=== PATIENT | male | born 1950 | race Caucasian/White ===

== ENCOUNTER 2023-08-03 18:27 | Emergency (ER) | payer OTHER, SELFPAY ==
--- NOTE | ~2023-08-03 | XR_ITS ---
XR shoulder LT min 2V DATE: 08/03/2023 19:08 INDICATION: Fall. Proximal shoulder pain. TECHNIQUE: 3 views COMPARISON: None FINDINGS: There is a nondisplaced vertical fracture through the greater tuberosity of the left humeru s. In addition, there is a very subtle nondisplaced transverse surgical neck fracture. Normal alignment at the acromioclavicular and glenohumeral joints. Diffuse osteopenia. 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 IMPRESSION: Nondisplaced transverse surgical neck and longitudinal greater tuberosity fractures of pr oximal humerus Reviewed, dictated and finalized at location A. FING DIRECTOR IMPRESSION: Nondisplaced transverse surgical neck and longitudinal greater tube rosity fractures of proximal humerus
[2023-08-03 18:29] VITALS: PULSE 68; RESP 20; TEMP 36.1; O2SAT 99
--- NOTE | 2023-08-03 18:43 | PC.NURSE ---
Pt and daughter both state his blood pressure is always elevated when in pain. Pt daughter stated they didnt want to bring him to hospital because he might get admitted for his bp. Both pt and daughter insist that his blood pressure is normally high. Pt states he missed his coreg dose at 5pm. Pt [id number]
--- NOTE | 2023-08-03 19:45 | ED.UPPEXIN ---
HPI - Extremity Injury (Upper) General Chief Complaint: Extremity Injury, Upper Stated Complaint: left shoulder Time Seen by Provider: 08/03/23 18:37 History of Present Illness HPI narrative: Patient is a 72-year-old male presenting with left shoulder pain. Patient was playing virtual reality games with his grand children when he lost his balance and fell directly on his left shoulder. Immediately had severe pain and difficulty lifting it. No numbness or weakness. Did not strike his head or lose consciousness. No further complaints. Related Data Allergies Allergy/AdvReac Type Severity Reaction Status Date / Time No Known Allergies Allergy Verified 08/03/23 18:37 Review of Systems Review of Systems: All systems reviewed & are unremarkable except as noted in HPI and below Exam Narrative: GENERAL: Well-appearing, No acute distress, pleasant and cooperative HEAD: Normocephalic, atraumatic. EYES: PERRLA and EOMI. ENT: grossly unremarkable NECK: Supple. CHEST: No respiratory distress. HEART: Regular rate and rhythm. Normal peripheral pulses. EXTREMITIES: holding left arm in adducted position, unable to abduct, pain is worsened with any movement, tender especially anteriorly, distal pulses 2+, no sensory deficits SKIN: Warm, dry, no rash. NEURO: Alert and oriented x3 PSYCH: Normal mood and affect. Course Vital Signs Vital signs: Vital Signs Temperature 97 F L 08/03/23 18:29 Pulse Rate 68 08/03/23 18:29 Respiratory Rate 20 08/03/23 18:29 Pulse Oximetry 99 08/03/23 18:29 Oxygen Delivery Room Air 08/03/23 18:29 Temperature 97 F L 08/03/23 18:29 Pulse Rate 84 08/03/23 20:11 Respiratory Rate 19 08/03/23 20:11 Blood Pressure 214/88 H 08/03/23 20:11 Pulse Oximetry 100 08/03/23 20:11 Oxygen Delivery Room Air 08/03/23 18:29 MDM - Extremity Injury (Upper) MDM Narrative Medical decision making narrative: 72-year-old male presenting with left shoulder pain after a fall. Vitals are stable. Exam remarkable for the above. Neurovascularly intact. X-ray of the left shoulder reveals nondisplaced fracture of the greater tuberosity as well as surgical neck. We will immobilize in sling and swath advised close orthopedic follow-up. [place] for pain control. Patient has Voltaren gel at home, advised to use this as well. Appropriate return precautions given. Discharged in stable condition. Differential Diagnosis Differential diagnosis: Likely dislocation of shoulder and fracture of humerus Imaging Data Radiologist's impression: ITS Impressions Shoulder X-Ray 08/03/23 19:16 IMPRESSION: Nondisplaced transverse surgical neck and longitudinal greater tuberosity fractures of proximal humerus Critical Care Time Critical Care Time Critical Care Time: No Discharge Plan Discharge Clinical Impression: Fracture of humerus Patient Disposition: Home, Self-Care Condition: Stable Instructions: Antibiotic Form, Proximal Humerus Fracture (ED), Shoulder Immobilizer (ED) Additional Instructions: The x-ray shows fractures of the upper part of your left arm. The treatment is immobilization with a sling which we have placed you in. Please use Tylenol, ibuprofen, Voltaren gel for pain control. We have provided [place] for severe breakthrough pain. Please follow-up closely with orthopedic surgery. If your pain suddenly worsens, you develop numbness or weakness, or other concerning symptoms arise, please return to the ER. Prescriptions: New hydrocodone-acetaminophen 5-325 mg tablet 1 tablet PO Q4H PRN (Reason: pain) Qty: 14 0RF Follow-up/Referrals: PHYSICIAN NOT ON STAFF,NONSTAFF [Non-Staff] - Pranav Bhardwaj MD [Physician] -
[2023-08-03] MEDS: HYDROcodone/acetaminophen (*CRX) 5-325 MG TABLET 1 TAB PO (19:49)
[2023-08-03 19:56] VITALS: BP 211/98; PULSE 64; RESP 16; O2SAT 98
[2023-08-03 20:11] VITALS: BP 214/88; PULSE 84; RESP 19; O2SAT 100
== END 2023-08-03 20:30 | disposition home or self-care (01) ==
PROVIDERS: Emergency Provider Emergency Medicine
DX: S42.215A Unspecified nondisplaced fracture of surgical neck of left humerus, initial encounter for closed fracture (principal); S42.255A Nondisplaced fracture of greater tuberosity of left humerus, initial encounter for closed fracture; W18.39XA Other fall on same level, initial encounter
CPT/HCPCS: 73030; 99284; A4565; A9270